=== PATIENT | male | born 1945 | race Caucasian/White ===

== ENCOUNTER → 2016-06-15 | Outpatient (CLI) | payer OTHER, MEDICARE ==
--- NOTE | 2016-06-15 12:11 | US ---
Thyroid Ultrasound History: Evaluate palpable thyroid nodule. Technique: Longitudinal and transverse images are obtained with attention to the thyroid gland. Color Doppler evaluation is employed for assessment of vascularity. Findings: The right lobe measures 1.2 x 1.5 x 4.2 cm. In the mid pole there is a solid nodule measuri ng 1.1 x 1.1 x 1.2 cm. This contains punctate echogenic foci consistent with calcification. The left lobe measures 1.6 x 2.0 x 4.2 cm. In the mid-inferior aspect there is a complex cystic and s olid nodule measuring 1.8 x 1.5 x 2.8 cm. This has equivocal microcalcifications. The isthmus measure s 4 mm and there is a 3 mm nodule in the right lateral aspect of the isthmus. Impression: Bilateral thyroid nodules. According to the SRU thyroid nodule management recommendations , the right lobe nodule contains microcalcifications and therefore should be considered as a target f or biopsy. The mixed solid and cystic nodule on the left measures greater than 2 cm in maximum dimens ion and would also be a candidate for biopsy.
--- NOTE | 2016-06-16 08:18 | DX ---
DEXA Bone Densitometry Technique: DEXA scan was performed on [employer] Discovery W Bone Densitometer Indication: Screening for osteoporosis Comparator Study: April 26, 2008 Results: Lumbar Spine BMD: 1.207 T-score: 1.1 Prior BMD: 1.094 % change: 10.3% Total Hip (Right) BMD: 0.989 T-score: -0.3 Femoral Neck (Right) BMD: 0.806 T-score: -0.9 Total Hip (Left) BMD: 0.993 T-score: -0.3 Prior BMD: 1.006 % change: -1.3% Femoral Neck (Left) BMD: 0.781 T-score: -1.1 CONCLUSION: Osteopenia based on the T score of the left femoral neck ADDITIONAL COMMENTS: In comparison to the previous study from 2007 there is been an increase in bone mineral density of th e lumbar spine however the scan types were dissimilar. By FRAX calculation, the estimated 10 year probability of any major osteoporotic fracture is 8.7%, an d the 10 year probability of hip fracture is 1.2%. Consider repeating the study in 2 years or as clin ically indicated NOTE: The risk of osteoporotic fractures increases approximately twofold for each 1.0 SD decrease in T-score. The T-score represents the standard deviations from a young normal, same sex, reference po pulation. Low bone density is not the only risk factor for fracture. Clinical factors to consider include fall risk, previous osteoporotic fractures, family history of fractures, smoking, and low body weight. Patients who have an unexpectedly low BMD may need to be evaluated for secondary causes of low bone m ineral density. In comparing the present study to a prior study, lack of a significant increase or decrease in BMD ma y signify efficacy of the patient's present treatment. Bone mineral density measurements performed with densitometers produced by different manufacturers ar e not comparable. For the most reproducible BMD measurement, subsequent exams should be performed on the same densitometer.
== END ==
LOC: BMCIMAGING 09:59
PROVIDERS: ATTEND Internal Medicine
DX: Z13.820 Encounter for screening for osteoporosis (principal); M85.80 Other specified disorders of bone density and structure, unspecified site; E04.2 Nontoxic multinodular goiter; E78.5 Hyperlipidemia, unspecified
CPT/HCPCS: 76536-PO; 84166-90

== ENCOUNTER 2016-06-24 09:56 | Day surgery (SDC) | payer OTHER, MEDICARE ==
[2016-06-24] MEDS ORDERED: ceFAZolin 2 GM/DEXTROSE 100 ML IV ONE (10:07)
[2016-06-24] MEDS ORDERED: BACITRACIN IRRIGATION/NS 50,000 UNITS/1,000 ML BTL IRR ONE (10:07)
[2016-06-24] MEDS ORDERED: NS 1,000 ML IV ONE (10:07)
[2016-06-24] MEDS ORDERED: DIAZEPAM 5 MG TAB PO ONE (10:07)
[2016-06-24] MEDS ORDERED: diphenhydrAMINE 25 MG CAP PO ONE ×2 (10:07→10:20)
[2016-06-24] MEDS ORDERED: DIAZEPAM 5 MG TAB ONE (10:20)
--- NOTE | 2016-06-24 10:23 | CPEKG ---
Heart Rate: 51 RR Interval: 1176 P-R Interval: 192 QRSD Interval: 106 QT Interval: 444 QTC Interval: 409 P [place]: 70 QRS [place]: 71 T Wave [place]: 50 EKG Severity - NORMAL ECG - EKG Impression: SINUS RHYTHM Electronically Signed By: Ruel Costello 24-Jun-2016 11:11:38
[2016-06-24 10:38] LABS: % IMMATURE GRANULYOCYTES 0.3 % (0.0-1.1); ABSOLUTE IMMATURE GRANULOCYTES 0.02 10^3/uL (0.00-0.10); ADD DIFF? NO; ADD MORPH? NO; ADD SCAN? NO; ATYPICAL LYMPHOCYTE FLAG 0 (0-99); FRAGMENT RBC FLAG 0 (0-99); HEMATOCRIT 44.2 % (40.0-51.0); HEMOGLOBIN 15.5 g/dL (13.7-17.5); LEFT SHIFT FLG 0 (0-99); LIPEMIA HEMOLYSIS FLAG 90 (0-99); MEAN CELL HEMOGLOBIN 33.6 pg (27.9-34.1); MEAN CELL HEMOGLOBIN CONCENTR. 35.1 g/dL (32.4-36.7); MEAN CELL VOLUME 95.9 fL (81.5-99.8); MEAN PLATELET VOLUME 10.7 fL (8.7-11.7); PLATELET CLUMPS FLAG 0 (0-99); PLATELET COUNT 166 10^3/uL (150-400); RED BLOOD CELL COUNT 4.61 10^6/uL (4.40-6.38); RED CELL DISTRIBUTION WIDTH 12.4 % (11.5-15.2)
[2016-06-24 10:48] LABS: INR 1.07 (0.83-1.16); PROTIME(PATIENT) 13.8 SEC (12.0-15.0)
[2016-06-24 10:58] LABS: ANION GAP 10 mEq/L (8-16); CALCIUM 9.7 mg/dL (8.5-10.4); CARBON DIOXIDE 29 mEq/l (22-31); CHLORIDE 105 mEq/L (97-110); CREATININE 0.9 mg/dL (0.7-1.3); GLOMERULAR FILTRATION RATE > 60; GLUCOSE 97 mg/dL (70-100); POTASSIUM 4.3 mEq/L (3.5-5.2); SODIUM 144 mEq/L (134-144)
[2016-06-24] MEDS ORDERED: LIDOCAINE 1% 30 ML SDV ONE (11:12)
[2016-06-24] MEDS ORDERED: MIDAZOLAM 2 MG/2 ML VIAL ONE (11:13)
[2016-06-24] MEDS ORDERED: BUPIVACAINE 0.5% 30 ML SDV ONE (11:13)
[2016-06-24] MEDS ORDERED: fentaNYL 100 MCG/2 ML INJ ONE (11:13)
--- NOTE | 2016-06-24 12:37 | EPPROC ---
Electrophysiology Procedure Note: PROCEDURE PERFORMED: 1. AV Pacemaker generator change INDICATION: Pacemaker generator at [place] Bradycardia PROCEDURE NOTE: Patient presented to the cardiac catheterization laboratory in a fasting, postabsorptive state. Patient did not want sedation. The left infraclavicular area was prepped and draped in the usual sterile fashion. Lidocaine plus bupivacaine was used for local anesthesia. Using a combination of blunt and sharp dissection and electrocautery, the dissection was carried down to the prepectoral fascia and the existing pacemaker pocket was opened. The pacemaker generator was disconnected from the leads and the lead thresholds and impedance were checked. The pacemaker pocket was copiously irrigated with antibiotic solution. The pocket was again inspected for any bleeding. The leads were attached to the pacemaker securely. The pacemaker was inserted into the pocket and secured in place with a nonabsorbable suture. The pacemaker pocket was closed in 3 layers with absorbable monocryl sutures and gonzales. Appropriate dressing was applied. The patient left the cardiac catheterization laboratory in stable condition. Serial Numbers: 1. Device [employer] Advisa MRI SN [id number] 2. Atrial Lead [employer]onic 4076-45 [id number] 3. Ventricular Lead [employer] 4076-52 [id number] Stimulation Thresholds & Impedance Measurements: 1. Atrial Lead 0.5 V 0.4 ms 418 ohm 2. Ventricular Lead 1.25V 0.4 ms 361 ohm [place] Pacing Parameters 1. Pacing mode AAIR - DDDR 2. Lower rate 50 ppm 3. Upper tracking rate 130 ppm 4. Upper sensor rate 130 ppm Patient Problems: Problems Problem Status Onset Bradycardia Acute
== END 2016-06-24 15:00 | disposition home health service (06) ==
LOC: FCATH 09:56
PROVIDERS: ATTEND Internal Medicine Cardiovascular Disease
PROC: 0JH606Z Insertion of Pacemaker, Dual Chamber into Chest Subcutaneous Tissue and Fascia, Open Approach (ICD-10-PCS; principal; 2016-06-24)
PROC: 0JPT0PZ Removal of Cardiac Rhythm Related Device from Trunk Subcutaneous Tissue and Fascia, Open Approach (ICD-10-PCS; principal; 2016-06-24)
DX: Z45.010 Encounter for checking and testing of cardiac pacemaker pulse generator [battery] (principal); I49.5 Sick sinus syndrome
CPT/HCPCS: C1785; J0690; J2250; J3010

== ENCOUNTER → 2016-12-21 | Outpatient (CLI) | payer OTHER, MEDICARE | LOC: BMCIMAGING 12:54 | PROVIDERS: ATTEND Internal Medicine | DX: M19.012 Primary osteoarthritis, left shoulder (principal); M51.36 Other intervertebral disc degeneration, lumbar region ==

== ENCOUNTER → 2017-08-06 | Outpatient (CLI) | payer OTHER, MEDICARE | LOC: FIMAGING 15:36 | PROVIDERS: ATTEND Internal Medicine Endocrinology, Diabetes & Metabolism | DX: E04.2 Nontoxic multinodular goiter (principal) ==

== ENCOUNTER → 2017-11-04 | Outpatient (CLI) | payer OTHER, MEDICARE | DX: Z95.0 Presence of cardiac pacemaker (principal) ==